=== PATIENT | female | born 1930 | race African-American/Black ===

== ENCOUNTER 2016-12-19 18:24 | Emergency (ER) | payer MEDICARE, BC ==
[~2016-12-19] VITALS: Ht 165.1 cm; Wt 55.0 kg
[~2016-12-19 18:24] MED LIST: AZEL137S7 NS; BREO HHN; BUDE6HFA INH; CALC1TAB96; CHOL100026 PO; CLOP75TA2 PO; CYAN10009 PO; DIGO125T82; DILT120C61; FENO48TA2; FERR-43 PO; FISH OIL PO; FOLI-43 PO; MAGN500C4 MT; MONT10TA21; POTA10TA15; TIOT18CA3; VALS320T2 PO; [UNRECOGNIZED DRUG - OTHER]; [UNRECOGNIZED DRUG - OTHER] PO; [UNRECOGNIZED DRUG - OTHER] PO; prevastatin PO; vitamin b complex PO
[2016-12-19 19:29] LABS: HEMATOCRIT. 28.3 % (36.0-48.0); HEMOGLOBIN. 9.3 g/dL (12.0-16.0); MEAN CORPUSCULAR HEMOGLOBIN 28.1 pg (28.0-32.0); MEAN CORPUSCULAR VOLUME 85.9 fL (81.0-99.0); MEAN PLATELET VOLUME 7.1 fl (7.4-10.4); PLATELET 170 x1000/uL (130-400); RED BLOOD CELL COUNT 3.29 mill/uL (4.2-5.4); RED CELL DISTRIBUTION WIDTH 16.6 % (11.6-14.6)
[2016-12-19 19:38] LABS: INR 1.2; PARTIAL THROMBOPLASTIN TIME 30.8 sec (24.0-34.0); PROTHROMBIN TIME 12.6 sec
[2016-12-19 19:43] LABS: CARBON DIOXIDE 28 mEq/L (21-32); CHLORIDE 102 mEq/L (98-107)
[2016-12-19 19:53] LABS: PLATELET ESTIMATE NORMAL
[2016-12-19 22:26] VITALS: BP 153/76
== END 2016-12-19 23:49 | disposition home or self-care (01) ==
LOC: ER 21:34
DX: S99.821A Other specified injuries of right foot, initial encounter (principal); J44.9 Chronic obstructive pulmonary disease, unspecified; I50.9 Heart failure, unspecified; I48.91 Unspecified atrial fibrillation; I11.9 Hypertensive heart disease without heart failure; Z88.0 Allergy status to penicillin; Z87.891 Personal history of nicotine dependence; Z79.899 Other long term (current) drug therapy; X58.XXXA Exposure to other specified factors, initial encounter; Y93.89 Activity, other specified; Y99.8 Other external cause status; Y92.89 Other specified places as the place of occurrence of the external cause
CPT/HCPCS: 11730; 11750; 11760; 36415; 80053; 85018; 85025; 85610; 85730; 99284

== ENCOUNTER 2017-02-05 15:04 | Inpatient (IN) | payer MEDICARE, BC ==
[~2017-02-05] VITALS: Ht 166.4 cm; Wt 52.2 kg
[~2017-02-05 15:04] MED LIST changes: -CHOL100026 PO; +CHOL100044 PO; +CLOP75TA16 PO; -CLOP75TA2 PO; -DIGO125T82; +DIGO125T82 PO; +FENO48; -FENO48TA2
[2017-02-05 16:12] LABS: BG BASE EXCESS -0.2 mmol/L (-2.0-2.0); BG CARBOXYHEMOGLOBIN 0.8 % (0.5-1.5); BG DEOXYHEMOGLOBIN 3.4 % (0.0-5.0); BG HCO3 ACT 23.9 mmol/L (22.0-26.0); BG METHEMOGLOBIN 0.3 % (0.0-1.5); BG OXYGEN SATURATION 96.6 % (92.0-98.5); BG OXYHEMOGLOBIN 95.5 % (94.0-97.0); BG PCO2 37.3 mmHg (35.0-45.0); BG PH 7.425 (7.350-7.450); BG SAMPLE SITE RIGHT BRACHIAL; BG TOTAL HEMOGLOBIN 12.3 g/dL (12.0-18.0); BG VENT MODE ROOM AIR
[2017-02-05 16:28] LABS: BASOPHILS % 1.5 % (0.0-2.0); EOSINOPHILS % 2.8 % (0.0-5.0); HEMATOCRIT. 34.5 % (36.0-48.0); HEMOGLOBIN. 11.3 g/dL (12.0-16.0); LYMPHOCYTES % 19.3 % (20.0-50.0); MEAN CORPUSCULAR HEMOGLOBIN 28.2 pg (28.0-32.0); MEAN CORPUSCULAR VOLUME 85.5 fL (81.0-99.0); MEAN PLATELET VOLUME 7.3 fl (7.4-10.4); MONOCYTES % 13.1 % (2.0-8.0); NEUTROPHILS % 63.3 % (40.0-76.0); PLATELET 122 x1000/uL (130-400); RED BLOOD CELL COUNT 4.03 mill/uL (4.2-5.4)
[2017-02-05 16:34] LABS: CLARITY URINE CLEAR (CLEAR); COLOR URINE YELLOW (YELLOW); GLUCOSE URINE NEGATIVE (NEGATIVE); KETONES URINE NEGATIVE (NEGATIVE); LEUKOCYTE ESTERASE URINE NEGATIVE (NEGATIVE); NITRITE URINE NEGATIVE (NEGATIVE); OCCULT BLOOD URINE NEGATIVE (NEGATIVE); PROTEIN URINE NEGATIVE (NEGATIVE); SPECIFIC GRAVITY URINE 1.007 (1.005-1.030); UROBILINOGEN URINE 0.2 E.U./dL (0.2-1.0)
[2017-02-05 16:37] LABS: CARBON DIOXIDE 29 mEq/L (21-32); CHLORIDE 100 mEq/L (98-107); ETHANOL BLOOD < 10 mg/dL
[2017-02-05] MEDS ORDERED: HYDRALAZINE 20MG/ML VIAL IV ONE (16:45)
[2017-02-05 16:47] LABS: *AMPHETAMINES SCREEN URINE NEGATIVE (NEGATIVE); *BARBITURATES SCREEN URINE NEGATIVE (NEGATIVE); *BENZODIAZEPINES SCREEN URINE NEGATIVE (NEGATIVE); *COCAINE SCREEN URINE NEGATIVE (NEGATIVE); CANNABINOID URINE SCREEN NEGATIVE (NEGATIVE); METHADONE URINE SCREEN NEGATIVE (NEGATIVE); OPIATES URINE SCREEN NEGATIVE (NEGATIVE); PHENCYCLIDINE URINE SCREEN NEGATIVE (NEGATIVE)
[2017-02-05] MEDS ORDERED: ACETAMINOPHEN 500MG TABLET PO NR (17:45)
[2017-02-05] MEDS ORDERED: ZOLPIDEM TARTRATE 5MG TABLET PO PRN (21:00)
[2017-02-05] MEDS ORDERED: ONDANSETRON HCL 4MG/2ML VIAL IV PRN (21:15)
[2017-02-05] MEDS ORDERED: IPRATROPIUM/ALBUTEROL 0.5-3(2.5)MG/3ML NEB INH PRN (21:15)
[2017-02-05] MEDS ORDERED: ACETAMINOPHEN 325MG TABLET PO PRN (21:15)
[2017-02-05] MEDS ORDERED: DOCUSATE SODIUM 100MG CAPSULE PO PRN (21:15)
[2017-02-05] MEDS ORDERED: MAGNESIUM/ALUMINUM HYDROXIDE/SIMETHICONE 30ML UDC PO PRN (21:15)
[2017-02-05] MEDS ORDERED: CLONIDINE 0.2MG TABLET PO ONE (21:45)
[2017-02-05 23:53] VITALS: BP 180/77
[2017-02-06 00:21] VITALS: BP 122/60
[2017-02-06 04:00] VITALS: BP 123/75
[2017-02-06] MEDS: OMEPRAZOLE 20MG CAPSULE EXTENDED RELEASE PO SCH (06:22)
[2017-02-06 06:46] LABS: HEMATOCRIT. 32.9 % (36.0-48.0); HEMOGLOBIN. 10.9 g/dL (12.0-16.0); MEAN CORPUSCULAR HEMOGLOBIN 28.4 pg (28.0-32.0); MEAN CORPUSCULAR VOLUME 85.9 fL (81.0-99.0); PLATELET 125 x1000/uL (130-400); RED BLOOD CELL COUNT 3.83 mill/uL (4.2-5.4); RED CELL DISTRIBUTION WIDTH 16.6 % (11.6-14.6)
[2017-02-06] MEDS ORDERED: RIVA10TA PO (06:49)
[2017-02-06 07:22] VITALS: BP 156/74
[2017-02-06 07:26] LABS: CARBON DIOXIDE 28 mEq/L (21-32); CHLORIDE 103 mEq/L (98-107)
[2017-02-06] MEDS: FISH OIL/OMEGA-3 FATTY ACIDS 1000MG CAPSULE PO SCH (08:49)
[2017-02-06] MEDS: NEBIVOLOL HCL 5 MG TABLET PO SCH (08:51)
[2017-02-06] MEDS: LOSARTAN POTASSIUM 100 MG TABLET PO SCH (08:52)
[2017-02-06] MEDS: FOLIC ACID 1MG TABLET PO SCH (08:52)
[2017-02-06] MEDS: FERROUS SULFATE 325MG TABLET PO SCH (08:52)
[2017-02-06] MEDS: CYANOCOBALAMIN 1000MCG TABLET PO SCH (08:52)
[2017-02-06] MEDS: MAGNESIUM OXIDE 400MG TABLET PO SCH (08:52)
[2017-02-06] MEDS ORDERED: MAGNESIUM OXIDE 250 MG PO SCH (09:00)
[2017-02-06] MEDS ORDERED: [UNRECOGNIZED DRUG - OTHER] PO SCH (09:00)
[2017-02-06] MEDS ORDERED: VALSARTAN 320 MG PO SCH (09:00)
[2017-02-06 11:15] VITALS: BP 146/77
[2017-02-06] MEDS: ASPIRIN 81MG EC TABLET PO SCH (11:32)
[2017-02-06] MEDS: AMLODIPINE 5MG TABLET PO SCH (11:32)
[2017-02-06 15:20] VITALS: BP 132/67
[2017-02-06] MEDS ORDERED: RIVAROXABAN 10 MG TABLET PO SCH (17:00)
[2017-02-06] MEDS ORDERED: RIVAROXABAN 15 MG TABLET PO SCH ×2 (17:00)
[2017-02-06] MEDS ORDERED: RIVAROXABAN 20 MG TABLET PO SCH (17:00)
[2017-02-06] MEDS ORDERED: DIGOXIN 125MCG TABLET PO SCH (18:00)
[2017-02-06 20:00] VITALS: BP 163/79
[2017-02-06] MEDS ORDERED: ATORVASTATIN CALCIUM 40MG TABLET PO SCH (21:00)
[2017-02-06 22:41] LABS: PLATELET ESTIMATE DECREASED
[2017-02-07] VITALS: BP_SYST 141; BP_SYST 143; BP_SYST 156; BP_DIAS 67; BP_DIAS 68; BP_DIAS 83
[2017-02-07 04:00] VITALS: BP 156/70
[2017-02-07] MEDS: OMEPRAZOLE 20MG CAPSULE EXTENDED RELEASE PO SCH (06:29)
[2017-02-07 06:44] LABS: HEMATOCRIT. 34.9 % (36.0-48.0); HEMOGLOBIN. 11.6 g/dL (12.0-16.0); MEAN CORPUSCULAR HEMOGLOBIN 28.5 pg (28.0-32.0); MEAN CORPUSCULAR VOLUME 85.3 fL (81.0-99.0); MEAN PLATELET VOLUME 7.6 fl (7.4-10.4); PLATELET 126 x1000/uL (130-400); RED BLOOD CELL COUNT 4.08 mill/uL (4.2-5.4); RED CELL DISTRIBUTION WIDTH 17.1 % (11.6-14.6)
[2017-02-07 08:00] VITALS: BP 150/71
[2017-02-07] MEDS: ASPIRIN 81MG EC TABLET PO SCH (09:06)
[2017-02-07] MEDS: MAGNESIUM OXIDE 400MG TABLET PO SCH (09:06)
[2017-02-07] MEDS: FOLIC ACID 1MG TABLET PO SCH (09:07)
[2017-02-07] MEDS: LOSARTAN POTASSIUM 100 MG TABLET PO SCH (09:07)
[2017-02-07] MEDS: AMLODIPINE 5MG TABLET PO SCH (09:07)
[2017-02-07] MEDS: FISH OIL/OMEGA-3 FATTY ACIDS 1000MG CAPSULE PO SCH (09:07)
[2017-02-07] MEDS: FERROUS SULFATE 325MG TABLET PO SCH (09:07)
[2017-02-07] MEDS: CYANOCOBALAMIN 1000MCG TABLET PO SCH (09:07)
[2017-02-07] MEDS: NEBIVOLOL HCL 5 MG TABLET PO SCH (09:08)
[2017-02-07 12:00] VITALS: BP 123/75
[2017-02-07 12:24] LABS: PLATELET ESTIMATE NORMAL
[2017-02-07 13:36] VITALS: BP 123/79
== END 2017-02-07 17:35 | disposition home or self-care (01) | DRG 292 ==
LOC: EDSEX → ER 15:26 → 6WST 19:25 → SUPCPDRO 19:42 → ENRESERV 20:10
PROVIDERS: ADMIT Family Medicine Adult Medicine; ATTEND Family Medicine Adult Medicine
DX: I11.0 Hypertensive heart disease with heart failure (principal); E87.1 Hypo-osmolality and hyponatremia; J44.9 Chronic obstructive pulmonary disease, unspecified; I48.2 Chronic atrial fibrillation; I50.9 Heart failure, unspecified; D64.9 Anemia, unspecified; E78.5 Hyperlipidemia, unspecified; I25.10 Atherosclerotic heart disease of native coronary artery without angina pectoris; K58.9 Irritable bowel syndrome, unspecified; I73.9 Peripheral vascular disease, unspecified; Z79.01 Long term (current) use of anticoagulants; Z95.810 Presence of automatic (implantable) cardiac defibrillator; Z88.0 Allergy status to penicillin; Z79.899 Other long term (current) drug therapy; Z88.6 Allergy status to analgesic agent
CPT/HCPCS: 36415; 36600; 70450; 71010; 80048; 80053; 80162; 80305; 81003; 82375; 82805; 83735; 84443; 85025; 87070; 87106; 93005; 93970; 96374; 97162; 99285; G0482; J0360

== ENCOUNTER 2017-04-02 06:00 | Day surgery (SDC) | payer MEDICARE, BC ==
[~2017-04-02] VITALS: Ht 166.4 cm; Wt 49.9 kg
[~2017-04-02 06:00] MED LIST changes: -ASCO1TAB39 PO; -ASPI-1159 PO; -BALANCED SALT IRRIG SOLN COMB1 500ML OP SCH; -CALC-1011 PO; -CYAN250010 PO; -FISH1CAP2 PO; -HYALURONATE SODIUM 14 MG/ML 0.85ML SYRINGE IO ONE; -MELA5TAB19 PO; -POTA10TA15 PO; -PRAV20TA57 PO; -RIVA20TA PO; -VITA1CAP PO
[2017-04-02] MEDS ORDERED: CYCLOPENTOLATE HCL 1% OPHTH DROPS 2ML RIGHTEYE ONE (10:00)
[2017-04-02] MEDS ORDERED: TROPICAMIDE 1% OPHTH DROPS 15ML RIGHTEYE ONE (10:00)
[2017-04-02] MEDS ORDERED: PHENYLEPHRINE HCL 10% OPHTH DROPS 5ML RIGHTEYE ONE (10:00)
[2017-04-02] MEDS ORDERED: LACTATED RINGERS 1,000 ML IV SCH (11:45)
[2017-04-02] MEDS ORDERED: LIDOCAINE HCL 2%/EPINEPHRINE 1:100,000 20 ML VIAL INFIL ONE (11:57)
[2017-04-02] MEDS ORDERED: BALANCED SALT IRRIG SOLN 15ML ONE (11:57)
[2017-04-02] MEDS ORDERED: TETRACAINE 0.5% OPHTH DROPS 4ML ONE (11:57)
[2017-04-02] MEDS ORDERED: CIPROFLOXACIN 0.3% OPHTH SOLN 2.5ML ONE (11:57)
[2017-04-02] MEDS ORDERED: NEO/POLYMYX B SULF/DEXAMETH OPHTH OINT 3.5GM ONE (11:57)
[2017-04-02] MEDS ORDERED: BUPIVACAINE HCL/PF 0.75% (7.5MG/ML) 10ML ONE (11:57)
[2017-04-02] MEDS ORDERED: ACETYLCHOLINE CHLORIDE INTRAOCULAR SOLUTION 1:100 ELECTROLYTE DILUENT IO ONE (11:57)
[2017-04-02] MEDS ORDERED: PREDNISOLONE ACETATE 1% OPHTH DROPS 1ML ONE (11:57)
[2017-04-02] MEDS ORDERED: POTA10TA15 PO (13:30)
[2017-04-02] MEDS ORDERED: RIVA20TA PO (13:30)
[2017-04-02] MEDS ORDERED: ASPI-1159 PO (13:30)
[2017-04-02] MEDS ORDERED: CALC-1011 PO (13:34)
[2017-04-02] MEDS ORDERED: ASCO1TAB39 PO (13:35)
[2017-04-02] MEDS ORDERED: FISH1CAP2 PO (13:38)
[2017-04-02] MEDS ORDERED: PRAV20TA57 PO (13:38)
[2017-04-02] MEDS ORDERED: VITA1CAP PO (13:41)
[2017-04-02] MEDS ORDERED: CYAN250010 PO (13:44)
[2017-04-02] MEDS ORDERED: MELA5TAB19 PO (13:44)
[2017-04-02] MEDS ORDERED: PROPOFOL 200MG/20ML VIAL IV ONE (13:46)
[2017-04-02] MEDS ORDERED: LIDOCAINE HCL 1% 20ML VIAL (Pyxis) INJ ONE (13:49)
[2017-04-02] MEDS ORDERED: LABETALOL HCL 5MG/ML VIAL 20ML IV PRN (14:00)
[2017-04-02] MEDS ORDERED: ONDANSETRON HCL 4MG/2ML VIAL IV PRN ×2 (14:00)
[2017-04-02] MEDS ORDERED: LABETALOL HCL 20MG/4ML CARPUJECT IV PRN (14:00)
[2017-04-02] MEDS ORDERED: MEPERIDINE HCL/PF 25MG/ML CPJ IV PRN ×2 (14:00)
== END 2017-04-02 16:00 | disposition home or self-care (01) ==
LOC: EDSEX → OR 06:00
PROVIDERS: ATTEND Ophthalmology
DX: H25.89 Other age-related cataract (principal); J44.9 Chronic obstructive pulmonary disease, unspecified; K21.9 Gastro-esophageal reflux disease without esophagitis; I10 Essential (primary) hypertension; I25.10 Atherosclerotic heart disease of native coronary artery without angina pectoris; I50.9 Heart failure, unspecified; I73.89 Other specified peripheral vascular diseases; I48.91 Unspecified atrial fibrillation; E78.00 Pure hypercholesterolemia, unspecified; D64.89 Other specified anemias; M19.90 Unspecified osteoarthritis, unspecified site; M54.30 Sciatica, unspecified side; E03.8 Other specified hypothyroidism; Z82.3 Family history of stroke; Z79.899 Other long term (current) drug therapy; Z86.73 Personal history of transient ischemic attack (TIA), and cerebral infarction without residual deficits; Z95.0 Presence of cardiac pacemaker; Z87.891 Personal history of nicotine dependence; Z79.82 Long term (current) use of aspirin; Z88.0 Allergy status to penicillin
CPT/HCPCS: 66984; J3490; V2632; J2704

== ENCOUNTER → 2017-04-02 | Day surgery (SDC) | payer MEDICARE, BC ==
[~2017-04-02] MED LIST changes: +ASCO1TAB39 PO; +ASPI-1159 PO; +BALANCED SALT IRRIG SOLN COMB1 500ML OP SCH; +CALC-1011 PO; +CYAN250010 PO; +FISH1CAP2 PO; +HYALURONATE SODIUM 14 MG/ML 0.85ML SYRINGE IO ONE; +MELA5TAB19 PO; +POTA10TA15 PO; +PRAV20TA57 PO; +RIVA10TA PO; +RIVA20TA PO; +VITA1CAP PO
== END | disposition home or self-care (01) ==
LOC: OR 08:55
PROVIDERS: ATTEND Ophthalmology
DX: H25.9 Unspecified age-related cataract (principal)
CPT/HCPCS: 66984; C1893; J3490; J7120

== ENCOUNTER → 2018-10-22 | Outpatient (CLI) | payer MEDICARE, BC ==
[~2018-10-22] MED LIST changes: +ASCO1TAB39 PO; +ASPI-1159 PO; +CALC-1011 PO; +CYAN250010 PO; -FISH OIL PO; +FISH1CAP2 PO; +MELA5TAB19 PO; -POTA10TA15; +POTA10TA15 PO; +PRAV20TA57 PO; -RIVA10TA PO; +RIVA20TA PO; +VITA1CAP PO; -[UNRECOGNIZED DRUG - OTHER]; -[UNRECOGNIZED DRUG - OTHER] PO; -[UNRECOGNIZED DRUG - OTHER] PO; -prevastatin PO; -vitamin b complex PO
== END | disposition home or self-care (01) ==
LOC: CARD 08:59
PROVIDERS: ATTEND Psychiatry & Neurology Neurology
DX: G31.84 Mild cognitive impairment of uncertain or unknown etiology (principal)

== ENCOUNTER 2019-03-28 17:24 | Emergency (ER) | payer MEDICARE, BC ==
[~2019-03-28] VITALS: Ht 165.1 cm; Wt 55.0 kg
[~2019-03-28 17:24] MED LIST changes: -ASPI-1159 PO; +ASPI-1393 PO; -CLOP75TA16 PO; +CLOP75TA4 PO; +CYAN-50 PO; -CYAN10009 PO
[2019-03-28] MEDS ORDERED: ACETAMINOPHEN 325MG TABLET PO ONE (18:15)
[2019-03-28 20:15] VITALS: BP 97/58
== END 2019-03-28 20:54 | disposition home or self-care (01) ==
LOC: ER 17:24
DX: R60.9 Edema, unspecified (principal); M79.18 Myalgia, other site; I11.0 Hypertensive heart disease with heart failure; I50.9 Heart failure, unspecified; J44.9 Chronic obstructive pulmonary disease, unspecified; Z88.0 Allergy status to penicillin; Z95.0 Presence of cardiac pacemaker; Z86.73 Personal history of transient ischemic attack (TIA), and cerebral infarction without residual deficits; Z87.891 Personal history of nicotine dependence
CPT/HCPCS: 93971; 99284

== ENCOUNTER 2019-05-20 17:40 | Inpatient (IN) | payer MEDICARE, BC ==
[~2019-05-20] VITALS: Ht 165.1 cm; Wt 66.4 kg
[2019-05-20 17:40] VITALS: BP 138/60
[~2019-05-20 17:40] MED LIST changes: -ASPI-1393 PO; -CLOP75TA4 PO; -FERR-43 PO; +FERR325T23 PO; -RIVA20TA PO
[2019-05-20] MEDS ORDERED: DEXTROSE 50% WATER 50ML SYRINGE IV PRN (19:15)
[2019-05-20 20:00] VITALS: BP 139/61
[2019-05-20] MEDS: DILTIAZEM HCL 30MG TABLET PO SCH (22:04)
[2019-05-21 01:11] VITALS: BP 139/61
[2019-05-21] MEDS: DILTIAZEM HCL 30MG TABLET PO SCH ×3 (06:30→21:53)
[2019-05-21 08:04] LABS: HEMATOCRIT. 26.4 % (36.0-48.0); HEMOGLOBIN. 8.7 g/dL (12.0-16.0); MEAN CORPUSCULAR HEMOGLOBIN 29.6 pg (28.0-32.0); MEAN CORPUSCULAR VOLUME 89.4 fL (81.0-99.0); MEAN PLATELET VOLUME 7.9 fl (7.4-10.4); PLATELET 165 x1000/uL (130-400); RED BLOOD CELL COUNT 2.95 mill/uL (4.2-5.4); RED CELL DISTRIBUTION WIDTH 17.7 % (11.6-14.6)
[2019-05-21 08:08] LABS: CHLORIDE 110 mEq/L (98-107)
[2019-05-21 08:19] LABS: PHOSPHORUS 3.9 mg/dL (2.5-4.9)
[2019-05-21 08:20] LABS: CREATINE KINASE 58 IU/L (26-192); TOTAL IRON BINDING CAPACITY 253 ug/dL (250-450)
[2019-05-21] MEDS: APIXABAN 2.5 MG TABLET PO SCH ×2 (08:24→17:24)
[2019-05-21] MEDS: FERROUS SULFATE 325MG TABLET PO SCH ×3 (08:24→17:24)
[2019-05-21 08:32] VITALS: BP 148/70
[2019-05-21 13:37] VITALS: BP 129/65
[2019-05-21 13:41] LABS: ATYPICAL LYMPHOCYTES 1; PLATELET ESTIMATE NORMAL
[2019-05-21 17:39] LABS: CLARITY URINE CLEAR (CLEAR); COLOR URINE YELLOW (YELLOW); KETONES URINE NEGATIVE (NEGATIVE); LEUKOCYTE ESTERASE URINE 2+ (NEGATIVE); NITRITE URINE POSITIVE (NEGATIVE); OCCULT BLOOD URINE NEGATIVE (NEGATIVE); PROTEIN URINE NEGATIVE (NEGATIVE); UROBILINOGEN URINE 0.2 E.U./dL (0.2-1.0)
[2019-05-21] MEDS: LEVOFLOXACIN 250MG TABLET PO SCH (18:46)
[2019-05-21 20:00] VITALS: BP 146/72
[2019-05-22] MEDS: IRON SUCROSE COMPLEX 100 MG in SODIUM CHLORIDE 0.9% 100 ML IV SCH (00:33)
[2019-05-22] MEDS: DILTIAZEM HCL 30MG TABLET PO SCH ×3 (05:58→21:16)
[2019-05-22 08:18] VITALS: BP 125/61
[2019-05-22] MEDS ORDERED: ONDANSETRON HCL 4MG TABLET PO PRN (09:15)
[2019-05-22] MEDS: APIXABAN 2.5 MG TABLET PO SCH ×2 (09:26→16:30)
[2019-05-22] MEDS ORDERED: BISACODYL 10MG SUPP PR PRN (09:45)
[2019-05-22] MEDS ORDERED: NA PHOS,M-B/NA PHOS,DI-BA ENEMA 118ML PR NR (09:45)
[2019-05-22] MEDS ORDERED: PHENOL/SODIUM PHENOLATE 1.4% SRPAY 177ML MM PRN (11:00)
[2019-05-22] MEDS: LEVOFLOXACIN 250MG TABLET PO SCH (11:41)
[2019-05-22] MEDS ORDERED: LACTULOSE 20G/30ML UDC PO SCH (13:00)
[2019-05-22] MEDS: DOCUSATE SODIUM 100MG CAPSULE PO SCH (16:30)
[2019-05-22 20:00] VITALS: BP 125/61
[2019-05-23] MEDS: IRON SUCROSE COMPLEX 100 MG in SODIUM CHLORIDE 0.9% 100 ML IV SCH (01:05)
[2019-05-23] MEDS: DILTIAZEM HCL 30MG TABLET PO SCH ×3 (05:18→21:03)
[2019-05-23 06:42] LABS: HEMATOCRIT. 27.2 % (36.0-48.0); MEAN CORPUSCULAR HEMOGLOBIN 29.6 pg (28.0-32.0); MEAN PLATELET VOLUME 7.5 fl (7.4-10.4); PLATELET 183 x1000/uL (130-400); RED BLOOD CELL COUNT 3.06 mill/uL (4.2-5.4); RED CELL DISTRIBUTION WIDTH 17.9 % (11.6-14.6)
[2019-05-23 06:59] LABS: CHLORIDE 108 mEq/L (98-107)
[2019-05-23 08:10] VITALS: BP 135/68
[2019-05-23] MEDS: APIXABAN 2.5 MG TABLET PO SCH ×2 (08:23→16:34)
[2019-05-23] MEDS: DOCUSATE SODIUM 100MG CAPSULE PO SCH ×2 (08:23→16:34)
[2019-05-23 10:26] LABS: PLATELET ESTIMATE NORMAL
[2019-05-23] MEDS: LEVOFLOXACIN 250MG TABLET PO SCH (11:28)
[2019-05-23 13:00] VITALS: BP 126/66
[2019-05-23 20:00] VITALS: BP 104/71
[2019-05-24] MEDS: IRON SUCROSE COMPLEX 100 MG in SODIUM CHLORIDE 0.9% 100 ML IV SCH (00:50)
[2019-05-24] MEDS: DILTIAZEM HCL 30MG TABLET PO SCH ×3 (06:00→21:45)
[2019-05-24 07:57] VITALS: BP 122/61
[2019-05-24] MEDS: DOCUSATE SODIUM 100MG CAPSULE PO SCH ×2 (09:11→16:41)
[2019-05-24] MEDS: APIXABAN 2.5 MG TABLET PO SCH ×2 (09:13→16:41)
[2019-05-24] MEDS: LEVOFLOXACIN 250MG TABLET PO SCH (10:45)
[2019-05-24 13:32] VITALS: BP 132/60
[2019-05-24 20:00] VITALS: BP 124/68
[2019-05-25] MEDS: IRON SUCROSE COMPLEX 100 MG in SODIUM CHLORIDE 0.9% 100 ML IV SCH (00:24)
[2019-05-25] MEDS: DILTIAZEM HCL 30MG TABLET PO SCH ×3 (05:07→21:27)
[2019-05-25 07:03] LABS: EOSINOPHILS % 2.7 % (0.0-5.0); HEMATOCRIT. 27.4 % (36.0-48.0); LYMPHOCYTES % 11.4 % (20.0-50.0); MEAN CORPUSCULAR HEMOGLOBIN 29.5 pg (28.0-32.0); MEAN CORPUSCULAR VOLUME 89.8 fL (81.0-99.0); MEAN PLATELET VOLUME 7.6 fl (7.4-10.4); MONOCYTES % 12.2 % (2.0-8.0); NEUTROPHILS % 72.7 % (40.0-76.0); PLATELET 216 x1000/uL (130-400); RED BLOOD CELL COUNT 3.05 mill/uL (4.2-5.4); RED CELL DISTRIBUTION WIDTH 17.9 % (11.6-14.6)
[2019-05-25 07:07] LABS: CHLORIDE 109 mEq/L (98-107)
[2019-05-25 08:00] VITALS: BP 139/170
[2019-05-25] MEDS: DOCUSATE SODIUM 100MG CAPSULE PO SCH ×2 (08:41→16:18)
[2019-05-25] MEDS: APIXABAN 2.5 MG TABLET PO SCH ×2 (08:41→16:18)
[2019-05-25] MEDS: ACETAMINOPHEN 650MG/20.3ML UDC PO PRN (09:28)
[2019-05-25] MEDS: LEVOFLOXACIN 250MG TABLET PO SCH (11:26)
[2019-05-25] MEDS: FERROUS SULFATE 325MG TABLET PO SCH (17:05)
[2019-05-25 20:00] VITALS: BP 161/71
[2019-05-26 07:53] LABS: 25-HYDROXY VITAMIN D3 51 ng/mL (.)
[2019-05-26 08:14] VITALS: BP 133/74
[2019-05-26] MEDS: FERROUS SULFATE 325MG TABLET PO SCH ×3 (09:00→16:04)
[2019-05-26] MEDS: LIDOCAINE 5% PATCH TOP SCH (09:00)
[2019-05-26] MEDS: DOCUSATE SODIUM 100MG CAPSULE PO SCH ×2 (09:00→16:04)
[2019-05-26] MEDS: APIXABAN 2.5 MG TABLET PO SCH ×2 (09:00→16:04)
[2019-05-26] MEDS: LEVOFLOXACIN 250MG TABLET PO SCH (11:40)
[2019-05-26] MEDS: DILTIAZEM HCL 30MG TABLET PO SCH ×2 (13:12→21:11)
[2019-05-26 20:00] VITALS: BP 146/78
[2019-05-27] MEDS: DILTIAZEM HCL 30MG TABLET PO SCH ×3 (05:19→21:27)
[2019-05-27 06:47] LABS: HEMOGLOBIN. 10.2 g/dL (12.0-16.0); MEAN CORPUSCULAR HEMOGLOBIN 29.7 pg (28.0-32.0); MEAN CORPUSCULAR VOLUME 90.1 fL (81.0-99.0); RED BLOOD CELL COUNT 3.44 mill/uL (4.2-5.4); RED CELL DISTRIBUTION WIDTH 18.7 % (11.6-14.6)
[2019-05-27 06:50] LABS: CHLORIDE 108 mEq/L (98-107)
[2019-05-27 07:08] LABS: PHOSPHORUS 3.2 mg/dL (2.5-4.9)
[2019-05-27] MEDS: APIXABAN 2.5 MG TABLET PO SCH ×2 (08:29→16:57)
[2019-05-27] MEDS: FERROUS SULFATE 325MG TABLET PO SCH ×3 (08:29→16:57)
[2019-05-27] MEDS: DOCUSATE SODIUM 100MG CAPSULE PO SCH ×2 (08:29→16:57)
[2019-05-27] MEDS: ACETAMINOPHEN 650MG/20.3ML UDC PO PRN (08:30)
[2019-05-27] MEDS: LIDOCAINE 5% PATCH TOP SCH (08:31)
[2019-05-27 08:35] VITALS: BP 129/63
[2019-05-27 09:05] LABS: PLATELET ESTIMATE NORMAL
[2019-05-27] MEDS: LEVOFLOXACIN 250MG TABLET PO SCH (10:48)
[2019-05-27 13:15] VITALS: BP 137/69
[2019-05-27 20:00] VITALS: BP 150/62
[2019-05-28] MEDS: DILTIAZEM HCL 30MG TABLET PO SCH ×3 (05:51→21:19)
[2019-05-28 06:55] LABS: HEMATOCRIT. 27.8 % (36.0-48.0); HEMOGLOBIN. 9.2 g/dL (12.0-16.0); MEAN CORPUSCULAR HEMOGLOBIN 29.5 pg (28.0-32.0); MEAN CORPUSCULAR VOLUME 89.1 fL (81.0-99.0); MEAN PLATELET VOLUME 7.6 fl (7.4-10.4); PLATELET 208 x1000/uL (130-400); RED BLOOD CELL COUNT 3.12 mill/uL (4.2-5.4); RED CELL DISTRIBUTION WIDTH 18.5 % (11.6-14.6)
[2019-05-28 08:04] VITALS: BP 131/64
[2019-05-28] MEDS: LIDOCAINE 5% PATCH TOP SCH (10:35)
[2019-05-28] MEDS: APIXABAN 2.5 MG TABLET PO SCH ×2 (10:36→17:24)
[2019-05-28] MEDS: FERROUS SULFATE 325MG TABLET PO SCH ×3 (10:36→17:24)
[2019-05-28] MEDS: LEVOFLOXACIN 250MG TABLET PO SCH (10:36)
[2019-05-28] MEDS: DOCUSATE SODIUM 100MG CAPSULE PO SCH ×2 (10:36→17:24)
[2019-05-28 13:11] LABS: PLATELET ESTIMATE NORMAL
[2019-05-28 20:00] VITALS: BP 141/65
[2019-05-28] MEDS: ACETAMINOPHEN 650MG/20.3ML UDC PO PRN (23:59)
[2019-05-29] MEDS: DILTIAZEM HCL 30MG TABLET PO SCH ×3 (05:46→21:54)
[2019-05-29] MEDS: FERROUS SULFATE 325MG TABLET PO SCH ×3 (08:32→17:02)
[2019-05-29] MEDS: DOCUSATE SODIUM 100MG CAPSULE PO SCH ×2 (08:32→17:02)
[2019-05-29] MEDS: APIXABAN 2.5 MG TABLET PO SCH ×2 (08:32→17:02)
[2019-05-29] MEDS: LIDOCAINE 5% PATCH TOP SCH (08:33)
[2019-05-29 08:57] VITALS: BP 138/70
[2019-05-29] MEDS ORDERED: IPRATROPIUM/ALBUTEROL 0.5-3(2.5)MG/3ML NEB HHN PRN (11:30)
[2019-05-29] MEDS: IPRATROPIUM/ALBUTEROL 0.5-3(2.5)MG/3ML NEB HHN SCH ×2 (13:29→16:25)
[2019-05-29 13:35] VITALS: BP 122/48
[2019-05-29 20:00] VITALS: BP 138/73
[2019-05-30] MEDS: IPRATROPIUM/ALBUTEROL 0.5-3(2.5)MG/3ML NEB HHN SCH ×6 (01:35→20:52)
[2019-05-30] MEDS: DILTIAZEM HCL 30MG TABLET PO SCH ×3 (05:59→21:34)
[2019-05-30 07:30] VITALS: BP 115/50
[2019-05-30 08:23] LABS: BASOPHILS % 0.8 % (0.0-2.0); EOSINOPHILS % 1.5 % (0.0-5.0); HEMATOCRIT. 25.7 % (36.0-48.0); HEMOGLOBIN. 8.4 g/dL (12.0-16.0); LYMPHOCYTES % 8.1 % (20.0-50.0); MEAN CORPUSCULAR HEMOGLOBIN 29.1 pg (28.0-32.0); MEAN PLATELET VOLUME 7.2 fl (7.4-10.4); MONOCYTES % 11.7 % (2.0-8.0); NEUTROPHILS % 77.9 % (40.0-76.0); PLATELET 220 x1000/uL (130-400); RED BLOOD CELL COUNT 2.89 mill/uL (4.2-5.4); RED CELL DISTRIBUTION WIDTH 18.2 % (11.6-14.6)
[2019-05-30] MEDS: FERROUS SULFATE 325MG TABLET PO SCH ×3 (08:32→17:16)
[2019-05-30] MEDS: APIXABAN 2.5 MG TABLET PO SCH ×2 (08:32→17:16)
[2019-05-30] MEDS: LIDOCAINE 5% PATCH TOP SCH (08:32)
[2019-05-30] MEDS: DOCUSATE SODIUM 100MG CAPSULE PO SCH ×2 (08:32→17:16)
[2019-05-30 14:20] VITALS: BP 132/73
[2019-05-30 20:00] VITALS: BP 117/51
[2019-05-31] MEDS: IPRATROPIUM/ALBUTEROL 0.5-3(2.5)MG/3ML NEB HHN SCH ×6 (00:42→20:16)
[2019-05-31] MEDS: DILTIAZEM HCL 30MG TABLET PO SCH ×3 (06:12→21:21)
[2019-05-31 08:00] VITALS: BP 123/75
[2019-05-31] MEDS: DOCUSATE SODIUM 100MG CAPSULE PO SCH ×3 (09:00→18:43)
[2019-05-31] MEDS: FERROUS SULFATE 325MG TABLET PO SCH ×3 (09:29→18:42)
[2019-05-31] MEDS: LIDOCAINE 5% PATCH TOP SCH (09:29)
[2019-05-31] MEDS: APIXABAN 2.5 MG TABLET PO SCH ×2 (09:29→18:42)
[2019-05-31 20:00] VITALS: BP 116/71
[2019-06-01] MEDS: IPRATROPIUM/ALBUTEROL 0.5-3(2.5)MG/3ML NEB HHN SCH ×4 (00:16→11:53)
[2019-06-01] MEDS: DILTIAZEM HCL 30MG TABLET PO SCH ×2 (05:45→14:20)
[2019-06-01 08:00] VITALS: BP 116/71
[2019-06-01 10:15] VITALS: BP 120/68
[2019-06-01] MEDS: DOCUSATE SODIUM 100MG CAPSULE PO SCH (10:15)
[2019-06-01] MEDS: FERROUS SULFATE 325MG TABLET PO SCH ×2 (10:15→13:00)
[2019-06-01] MEDS: APIXABAN 2.5 MG TABLET PO SCH (10:15)
[2019-06-01] MEDS: LIDOCAINE 5% PATCH TOP SCH (10:15)
[2019-06-01] MEDS ORDERED: POTASSIUM CHLORIDE 20MEQ TABLET SR PO NR (12:30)
[2019-06-01 13:28] LABS: EOSINOPHILS % 3.4 % (0.0-5.0); HEMOGLOBIN. 10.2 g/dL (12.0-16.0); LYMPHOCYTES % 8.4 % (20.0-50.0); MEAN CORPUSCULAR HEMOGLOBIN 29.1 pg (28.0-32.0); MEAN CORPUSCULAR VOLUME 88.8 fL (81.0-99.0); MEAN PLATELET VOLUME 7.1 fl (7.4-10.4); MONOCYTES % 11.8 % (2.0-8.0); NEUTROPHILS % 75.4 % (40.0-76.0); PLATELET 242 x1000/uL (130-400); RED CELL DISTRIBUTION WIDTH 18.2 % (11.6-14.6)
[2019-06-01 13:42] LABS: CHLORIDE 108 mEq/L (98-107)
[2019-06-01] MEDS ORDERED: DILTIAZEM HCL 5MG/ML 5ML VIAL IV NR (14:15)
[2019-06-03] MEDS ORDERED: UMEC1DIS INH (15:46)
[2019-06-03] MEDS ORDERED: AMLO5TAB88 MT (15:48)
[2019-06-06] MEDS ORDERED: DILT60TA35 PO (13:06)
[2019-06-06] MEDS ORDERED: DIGO-26 PO (13:06)
[2019-06-06] MEDS ORDERED: APIX2.5T PO (13:06)
== END 2019-06-01 15:00 | disposition short-term general hospital (02) | DRG 73 ==
LOC: UNDODISIN 05-21 22:30
PROVIDERS: ADMIT Physical Medicine & Rehabilitation Spinal Cord Injury Medicine; ATTEND Family Medicine Adult Medicine
DX: G62.81 Critical illness polyneuropathy (principal); G93.41 Metabolic encephalopathy; K29.71 Gastritis, unspecified, with bleeding; A41.51 Sepsis due to Escherichia coli [E. coli]; J96.00 Acute respiratory failure, unspecified whether with hypoxia or hypercapnia; E43 Unspecified severe protein-calorie malnutrition; E46 Unspecified protein-calorie malnutrition; N17.9 Acute kidney failure, unspecified; I13.0 Hypertensive heart and chronic kidney disease with heart failure and stage 1 through stage 4 chronic kidney disease, or unspecified chronic kidney disease; I50.32 Chronic diastolic (congestive) heart failure; N39.0 Urinary tract infection, site not specified; I48.20 Chronic atrial fibrillation, unspecified; I82.890 Acute embolism and thrombosis of other specified veins; Z60.2 Problems related to living alone; D69.6 Thrombocytopenia, unspecified; R13.10 Dysphagia, unspecified; N18.9 Chronic kidney disease, unspecified; E16.2 Hypoglycemia, unspecified; E87.6 Hypokalemia; J44.9 Chronic obstructive pulmonary disease, unspecified; I73.9 Peripheral vascular disease, unspecified; M46.90 Unspecified inflammatory spondylopathy, site unspecified; B96.20 Unspecified Escherichia coli [E. coli] as the cause of diseases classified elsewhere; E55.9 Vitamin D deficiency, unspecified; G83.21 Monoplegia of upper limb affecting right dominant side; D50.9 Iron deficiency anemia, unspecified; F10.11 Alcohol abuse, in remission; R53.81 Other malaise; R26.9 Unspecified abnormalities of gait and mobility; F41.8 Other specified anxiety disorders; F03.90 Unspecified dementia, unspecified severity, without behavioral disturbance, psychotic disturbance, mood disturbance, and anxiety; K20.9 Esophagitis, unspecified; M19.90 Unspecified osteoarthritis, unspecified site; E78.00 Pure hypercholesterolemia, unspecified; R26.89 Other abnormalities of gait and mobility; I27.20 Pulmonary hypertension, unspecified; Z95.0 Presence of cardiac pacemaker; Z79.01 Long term (current) use of anticoagulants; Z87.891 Personal history of nicotine dependence; Z86.73 Personal history of transient ischemic attack (TIA), and cerebral infarction without residual deficits; Z68.24 Body mass index [BMI] 24.0-24.9, adult; Z88.0 Allergy status to penicillin; Z79.899 Other long term (current) drug therapy; Z82.49 Family history of ischemic heart disease and other diseases of the circulatory system
CPT/HCPCS: 36415; 71045; 73200; 80048; 80053; 81003; 82140; 82306; 82550; 82728; 83540; 83550; 83735; 83880; 84100; 84134; 85025; 87077; 87186; 92523; 92610; 93005; 93970; 97110; 97112; 97116; 97150; 97162; 97167; 97530; 97535; C1893; J3490; J7040; J7050; J7620; Q0162